=== PATIENT | male | born 1965 | race Two or more races ===

== ENCOUNTER 2019-04-16 13:32 | Inpatient (IN) | payer OTHER ==
[~2019-04-16] VITALS: Ht 177.8 cm; Wt 95.3 kg
[2019-05-01] MEDS ORDERED: ZETIA10 MG PO (13:51)
[2019-05-01] MEDS ORDERED: ZANTAC150 MG PO (13:52)
[2019-05-01] MEDS ORDERED: ESTAZOLAM2 MG PO (13:52)
[2019-05-01] MEDS ORDERED: ATIVAN2 M1 PO (13:52)
[2019-05-01] MEDS ORDERED: EFFEXOR XR75 MG PO (15:07)
[2019-05-01] MEDS ORDERED: TOPROL XL25 M1 PO (15:07)
[2019-05-12] MEDS ORDERED: FLONASE16 GM NS (10:42)
[2019-05-12] MEDS ORDERED: VENLAFAXINE HCL75 M1 PO (10:44)
[2019-05-12] MEDS ORDERED: ACID CONTROL150 MG PO (10:45)
== END 2019-05-14 16:22 | DRG 470 ==
LOC: O/R 05-01 09:00 → SURH 05-12 07:52 → O/R 05-12 07:52 → SURH 05-12 15:31 → SURG 05-13 09:00 → SURH 05-14 16:22
PROVIDERS: ADMIT Orthopaedic Surgery
PROC: 0SRC0J9 Replacement of Right Knee Joint with Synthetic Substitute, Cemented, Open Approach (ICD-10-PCS; principal; 2019-05-12 10:00)
DX: M17.11 Unilateral primary osteoarthritis, right knee (principal); D62 Acute posthemorrhagic anemia; I10 Essential (primary) hypertension